=== PATIENT | male | born 1955 | race Hispanic/Latino ===

== ENCOUNTER → 2023-05-06 | Outpatient (CLI) | payer MEDICARE ==
[~2023-05-06] MED LIST: ALBUMIN (HUMAN) 25% 200 ML IV SCH
[2023-05-06 09:46] LABS: BASOPHILS # (AUTO) 0.08 K/uL (0.00-0.20); BASOPHILS % (AUTO) 1.2 % (0.0-5.0); EOSINOPHILS # (AUTO) 0.14 K/uL (0.00-0.70); EOSINOPHILS % (AUTO) 2.1 % (0.0-8.0); HEMATOCRIT 36.1 % (42-54); IMMATURE GRANULOCYTE ABSOLUTE 0.04 K/uL (0-1); LYMPHOCYTES # (AUTO) 1.5 K/uL (1.0-4.8); LYMPHOCYTES % (AUTO) 23.2 % (21.0-51.0); MEAN CORPUSCULAR HEMOGLOBIN 31.7 pg (27.0-33.0); MEAN CORPUSCULAR HGB CONC 33.2 g/dL (32.0-36.0); MEAN CORPUSCULAR VOLUME 95.3 fL (79-99); MONOCYTES # (AUTO) 0.8 K/uL (0.1-1.0); MONOCYTES % (AUTO) 11.6 % (3.0-13.0); NEUTROPHILS % (AUTO) 61.3 % (40.0-77.0); PLATELET COUNT (AUTO) 141 K/uL (130-400); RED BLOOD CELL COUNT(AUTO) 3.79 MIL/uL (4.50-6.20); RED CELL DISTRIBUTION WIDTH 15.9 % (11.0-15.5); WHITE BLOOD COUNT (AUTO) 6.6 K/uL (4.8-10.8)
[2023-05-06 10:08] LABS: ALBUMIN 2.8 g/dL (3.5-5.0); BILIRUBIN,TOTAL 0.5 mg/dL (0.2-1.0); CREATININE 4.6 mg/dL (0.5-1.5); INR 0.99 (0.85-1.15); POTASSIUM 3.6 mmol/L (3.5-5.1); PROTHROMBIN TIME 11.5 SEC (9.6-11.6); TOTAL PROTEIN, SERUM 7.7 g/dL (6.0-8.3)
[2023-05-06 10:10] LABS: PARTIAL THROMBOPLASTIN TIME 29.9 SEC (26.3-35.5)
[2023-05-06 13:32] LABS: ALBUMIN,BODY FLUID 1.6 g/dL; TOTAL PROTEIN,BODY FLUID 4.1 g/dL
== END ==
LOC: RAH 08:30
PROVIDERS: ATTEND Internal Medicine
DX: R18.8 Other ascites (principal); K74.69 Other cirrhosis of liver
CPT/HCPCS: 49083; 84157; 80053; 85025; 85610; 85730; 87071; 87076; 87205; 82042; 36415; 88305; 88112; P9046; C1729

== ENCOUNTER 2023-10-13 07:39 | Day surgery (SDC) | payer MEDICARE ==
[2023-10-09 12:36] LABS: HEMATOCRIT 37.7 % (42-54); MEAN CORPUSCULAR HEMOGLOBIN 33.2 pg (27.0-33.0); MEAN CORPUSCULAR HGB CONC 33.7 g/dL (32.0-36.0); MEAN CORPUSCULAR VOLUME 98.4 fL (79-99); RED BLOOD CELL COUNT(AUTO) 3.83 MIL/uL (4.50-6.20); RED CELL DISTRIBUTION WIDTH 15.8 % (11.0-15.5); WHITE BLOOD COUNT (AUTO) 6.4 K/uL (4.8-10.8)
[2023-10-09 12:46] LABS: INR 0.95 (0.85-1.15); PROTHROMBIN TIME 11.3 SEC (9.6-11.6)
[2023-10-09 12:47] LABS: PARTIAL THROMBOPLASTIN TIME 30.5 SEC (26.3-35.5)
[2023-10-09 13:07] LABS: CREATININE 6.8 mg/dL (0.5-1.3); POTASSIUM 5.3 mmol/L (3.5-5.1)
[2023-10-09 13:09] VITALS: BP 153/91; PULSE 75; RESP 18
[~2023-10-13] VITALS: Ht 172.7 cm; Wt 74.8 kg
[2023-10-13] VITALS (16 sets, daily range): BP systolic 98–114; BP diastolic 53–76; PULSE 69–80; RESP 14–18
[~2023-10-13 07:39] MED LIST changes: -ALBUMIN (HUMAN) 25% 200 ML IV SCH; +FOLI1TAB85 PO; +LACT10SO75 PO; +MIDO10TA PO
[2023-10-13] MEDS ORDERED: 0.9% NACL 500ML IV.SOLN 500 ML IV ONE (09:36)
[2023-10-13 10:23] LABS: POTASSIUM 4.3 mmol/L (3.5-5.1)
[2023-10-13] MEDS ORDERED: PAPAVERINE HCL 30 MG/ML 2ML VIAL ONE (10:49)
[2023-10-13] MEDS ORDERED: CEFAZOLIN SODIUM 1 GM VIAL ONE (10:49)
[2023-10-13] MEDS: CEFAZOLIN SODIUM 2 GM VIAL ONE (11:30)
[2023-10-13] MEDS ORDERED: LIDOCAINE PF 100MG/5ML (2%) SYRINGE 5ML ONE (11:55)
[2023-10-13] MEDS ORDERED: PROPOFOL 10 MG/ML 20ML VIAL IV ONE (11:55)
[2023-10-13] MEDS ORDERED: ONDANSETRON 4MG INJ ONE (11:55)
[2023-10-13] MEDS ORDERED: KETAMINE 50MG/ML SYRINGE 50 MG/ML DISP.SYRIN ONE (11:56)
[2023-10-13] MEDS ORDERED: BUPIVACAINE/PF 0.5% 30ML VIAL ONE (12:15)
[2023-10-13] MEDS ORDERED: LIDOCAINE 1%-EPI 1:100,000 20 ML VIAL ONE (12:16)
[2023-10-13] MEDS: CEFAZOLIN SODIUM 2 GM VIAL IVPB ONE (12:20)
[2023-10-13] MEDS ORDERED: FENTANYL CITRATE PF 50 MCG/1 ML 2ML VIAL ONE (12:22)
[2023-10-13] MEDS ORDERED: HEPARIN 10,000 UNIT/10ML (1,000 UNIT/ML) VIAL ONE (12:56)
[2023-10-13] MEDS ORDERED: PROTAMINE SULFATE 10 MG/ML 5 ML VIAL ONE (13:23)
[2023-10-13] MEDS: LIDOCAINE 1%-EPI 1:100,000 20 ML VIAL IJ ONE (13:35)
== END 2023-10-13 15:42 | disposition home or self-care (01) ==
LOC: DAH 07:39
PROVIDERS: ATTEND Thoracic Surgery (Cardiothoracic Vascular Surgery)
DX: T82.898A Other specified complication of vascular prosthetic devices, implants and grafts, initial encounter (principal); N18.6 End stage renal disease; I45.10 Unspecified right bundle-branch block; Z79.01 Long term (current) use of anticoagulants; Z79.899 Other long term (current) drug therapy; Z90.49 Acquired absence of other specified parts of digestive tract; Z98.890 Other specified postprocedural states; Z87.891 Personal history of nicotine dependence; Z72.89 Other problems related to lifestyle; Y83.2 Surgical operation with anastomosis, bypass or graft as the cause of abnormal reaction of the patient, or of later complication, without mention of misadventure at the time of the procedure; Y92.89 Other specified places as the place of occurrence of the external cause
CPT/HCPCS: 71045; 80048 ×2; 85027; 85610; 85730; 86850 ×2; 86900 ×2; 86901 ×2; 36415 ×2; 93005; 36830; A6260; J2440; C9250; J0665 ×2; A4663; A6207; A4452; J7040; J3010; J0690 ×3; J3490 ×3; J2001; J2720; J1644 ×2; J2704; J2405; A4649 ×3; C1713 ×2; A4930; C1768; A4215; A4223; A4657; A4222; A4221; G0168

== ENCOUNTER → 2024-07-21 | Outpatient (CLI) | payer MEDICARE ==
[~2024-07-21] MED LIST changes: +ALBUMIN HUMAN 25% 200 ML IV ONE; -MIDO10TA PO; +MIDO10TA3 PO
[2024-07-21 11:11] LABS: BASOPHILS % (AUTO) 1.5 % (0.0-5.0); EOSINOPHILS # (AUTO) 0.12 K/uL (0.00-0.70); EOSINOPHILS % (AUTO) 1.8 % (0.0-8.0); HEMATOCRIT 38.3 % (42-54); IMMATURE GRANULOCYTE ABSOLUTE 0.02 K/uL (0-1); LYMPHOCYTES # (AUTO) 1.5 K/uL (1.0-4.8); LYMPHOCYTES % (AUTO) 23.1 % (21.0-51.0); MEAN CORPUSCULAR HEMOGLOBIN 30.5 pg (27.0-33.0); MEAN CORPUSCULAR HGB CONC 30.8 g/dL (32.0-36.0); MONOCYTES # (AUTO) 0.8 K/uL (0.1-1.0); MONOCYTES % (AUTO) 11.9 % (3.0-13.0); NEUTROPHILS # (AUTO) 4.1 K/uL (1.8-7.7); NEUTROPHILS % (AUTO) 61.4 % (40.0-77.0); PLATELET COUNT (AUTO) 176 K/uL (130-400); RED BLOOD CELL COUNT(AUTO) 3.87 MIL/uL (4.50-6.20); WHITE BLOOD COUNT (AUTO) 6.7 K/uL (4.8-10.8)
[2024-07-21 11:23] LABS: ALBUMIN 2.8 g/dL (3.5-5.0); BILIRUBIN,TOTAL 0.6 mg/dL (0.2-1.0); CREATININE 5.2 mg/dL (0.5-1.3); POTASSIUM 4.8 mmol/L (3.5-5.1); TOTAL PROTEIN, SERUM 7.4 g/dL (6.0-8.3)
[2024-07-21 11:30] LABS: PROTHROMBIN TIME 11.2 SEC (9.6-11.6)
[2024-07-21] MEDS: ALBUMIN HUMAN 25% 200 ML IV ONE (11:33)
--- NOTE | 2024-07-21 12:05 | NUR ---
U/S GD PARACENTESIS TOLERATED PROCEDURE. PERFORMED BY DR Mayra CUNNINGHAM. PUNCTURE SITE TO RLQ. 7.3 LITERS OF YELLOW CLOUDY FLUID REMOVED AND SENT TO LAB. ALBUMIN 25% 50 GRAMS GIVEN IV. END OF PROCEDURE AT 1145. DRESSING DRY AND INTACT. NO BLEEDING NOTED. DISCHARGE VIA WHEELCHAIR. DISCHARGE INSTRUCTIONS GIVEN. VERBALIZED UNDERSTANDING. A&O. DENIES PAIN.
[2024-07-21 13:05] LABS: ALBUMIN,BODY FLUID 1.3 g/dL; TOTAL PROTEIN,BODY FLUID 3.2 g/dL
[2024-07-21 13:13] LABS: BODY FLUID RBC 1270 /cu. mm.; BODY FLUID WBC 420 /cu. mm.
[2024-07-21 13:52] LABS: APPEARANCE BODY FLUID SLIGHTLY CLOUDY (CLEAR); COLOR,BODY FLUID YELLOW (LT YELLOW); SPECIMENTYPE,BODY FLUID ASCITES; TOTAL VOLUME,BODY FLUID 7300 mL
[2024-07-21 14:04] LABS: BF LYMPHOCYTE 40 %; BF MACROPHAGE 43; BF MESOTHELIAL 6 %; BF MONOCYTE 5 %; BF TOTAL CELLS COUNTED 100
--- NOTE | 2024-07-21 14:47 | HMCIMG ---
US ABDOMINAL PARACENTESIS IR REASON: ASCITES TECHNIQUE: Paracentesis was performed with ultrasound guidance. The puncture site was selected in the Right lower quadrant and overlying skin prepped and draped in a sterile fashion. 1% Xylocaine infiltration was performed. Catheter was placed in the fluid using trocar technique. 7.3 L were removed. Fluid sample was submitted for laboratory evaluation. The patient showed no evidence of complication during the procedure. IMPRESSION: 1. Ultrasound-guided paracentesis.
== END | disposition home or self-care (01) ==
LOC: RAH 10:28
PROVIDERS: ATTEND Internal Medicine Gastroenterology
DX: R18.8 Other ascites (principal); K21.9 Gastro-esophageal reflux disease without esophagitis; K74.60 Unspecified cirrhosis of liver; N18.6 End stage renal disease; K25.9 Gastric ulcer, unspecified as acute or chronic, without hemorrhage or perforation; K74.69 Other cirrhosis of liver; K57.30 Diverticulosis of large intestine without perforation or abscess without bleeding; K42.0 Umbilical hernia with obstruction, without gangrene; K43.9 Ventral hernia without obstruction or gangrene; K40.90 Unilateral inguinal hernia, without obstruction or gangrene, not specified as recurrent; R06.02 Shortness of breath; J91.8 Pleural effusion in other conditions classified elsewhere; Z98.890 Other specified postprocedural states
CPT/HCPCS: 49083; 84157; 80053; 85025; 89051; 85610; 85730; 87071; 87205; 82042; 36415; P9046; C1729; 96365

== ENCOUNTER 2024-08-14 12:50 | Emergency (ER) | payer MEDICARE ==
[~2024-08-14] VITALS: Ht 172.7 cm; Wt 78.5 kg
[~2024-08-14 12:50] MED LIST changes: -ALBUMIN HUMAN 25% 200 ML IV ONE
--- NOTE | 2024-08-14 13:06 | ERN ---
ED Note History of Present Illness Stated Complaint: RIB AND ABDOMINAL PAIN Chief Complaint: Abdominal Pain Time Seen by MD: 12:52 Dictation: PATIENT IS A 68-YEAR-OLD MALE COMING IN TODAY WITH COMPLAINTS OF AN ACUTE ONSET OF EPIGASTRIC PAIN WITHOUT NAUSEA VOMITING DIARRHEA THIS MORNING. HE STATES HE HAS A HISTORY OF HERNIAS AND HAD A PRIOR REPAIR IN MAY AT THE EMERGENCY ROOM HERE AT [place]. STATES HE HAS TWO MORE HERNIAS TO HIS ABDOMEN THAT HAS BEEN WORKED UP BY [facility] HOWEVER THEY BEEN WAITING TO SEE WHEN THEY COULD PERFORM SURGERY. NO CHEST PAIN NO BACK PAIN NO SOB. Allergies: Coded Allergies: No Known Drug Allergies (Verified Allergy, Unknown, 05/05/23) Home Meds Reported Medications Vit B Cmplx 3/FA/Vit C/Biotin (Jyoti-Evelyn Rx Tablet) 1 Mg-60 Mg-300 Mcg Tablet, 1 EACH PO DAILY, TAB 10/09/23 Lactulose (Enulose) 10 Gram/15 Ml Solution, 10 GM PO DAILY, ML 10/09/23 Midodrine HCl (Midodrine HCl) 10 Mg Tablet, 10 MG PO TID, TAB 10/09/23 Past Medical History RN Note Reviewed/Agreed w/PFSH: Yes Review of System Dictation CONSTITUTIONAL: NEGATIVE EXCEPT FOR HPI HEAD/FACE: NEGATIVE EXCEPT FOR HPI EENT: NEGATIVE EXCEPT FOR HPI RESPIRATORY: NEGATIVE EXCEPT FOR HPI GASTROINTESTINAL/ABDOMINAL: NEGATIVE EXCEPT FOR HPI EPIGASTRIC PAIN WITH NAUSEA GENITOURINARY: NEGATIVE EXCEPT FOR HPI MUSCULOSKELETAL: NEGATIVE EXCEPT FOR HPI INTEGUMENTARY: NEGATIVE EXCEPT FOR HPI NEUROLOGICAL/PSYCH: NEGATIVE EXCEPT FOR HPI HEMATOLOGIC/LYMPHATIC: NEGATIVE EXCEPT FOR HPI ALL SYSTEMS NEGATIVE, EXCEPT NOTED ABOVE. 13 POINT REVIEW OF SYSTEMS ASSESSED AND ALL NEGATIVE EXCEPT FOR ABOVE. Initial Vital Sign VS Vital Signs Date Time Temp Pulse Resp B/P (MAP) Pulse Ox O2 Delivery O2 Flow Rate FiO2 08/14/24 13:03 97.9 92 18 129/79 96 Room Air 08/14/24 13:15 0 21 Physical Exam Dictation VITAL SIGNS REVIEWED GENERAL APPEARANCE: ALERT, ORIENTED X 3, MONITOR ACUTE DISTRESS, WELL DEVELOPED, NOURISHED. HEAD AND FACE: NON-TRAUMATIC. EYES: PERRL, PINK CONJUNCTIVAS, EYELID NO TRAUMA, ANTERIOR CHAMBER WITH ARCUS SENILIS. EARS: PINNAS INTACT AND NO SIGNS OF TRAUMA OR ERYTHEMA EAR CANALS CLEAR AND NO DISCHARGE TM NO ERYTHEMA NOSE: NO DISCHARGE, NO BLEEDING. OROPHARYNX: MOUTH NORMAL, TONGUE PINK, PHARYNX CLEAR,NO ERYTHEMA, TONSILS NO EXUDATES, NO ABSCESSES NOTED, MUCOUS MEMB PREETI MOIST NECK: SUPPLE, NON-TENDER, NO THYROMEGALY, NO MASSES, NO JVD, NO BRUITS BREAST:DEFERRED CHEST:NO TENDERNESS, NO CREPITUS, NO PARADOXICAL MOVEMENT, NO RETRACTIONS LUNGS:CLEAR, WELL-VENTILATED, SYMMETRIC, NO RALES, NO WHEEZING, NO RHONCHI, NO S TRIDOR, GOOD BREATH SOUNDS BILATERALLY HEART: REGULAR RATE, REGULAR RHYTHM, NO MURMUR, NO GALLOPS VASCULAR: NO PERIPHERAL EDEMA, ABDOMEN: SOFT, POSITIVE BOWEL SOUNDS, NONDISTENDED, NO GUARDING, MODERATE EPIGASTRIC PAIN WITH PALPATION, NO REBOUND, NO MASSES NO HEPATOMEGALY, NO SPLENOMEGALY, NO GUO'S SIGN, NO HERNIAS. RECTAL: DEFERRED GENITAL: DEFERRED NEUROLOGICAL: NORMAL SPEECH, MOTOR FUNCTION INTACT, SENSORY FUNCTION INTACT MUSCULOSKELETAL: NECK NONTENDER, FULL RANGE OF MOTION, BACK NONTENDER, FULL RANGE OF MOTION, EXTREMITIES: NONTENDER, FULL RANGE OF MOTION SKIN: COLOR PINK, DRY, NO TURGOR, NO RASH, NO LACERATIONS, NO ABRASIONS, NO CONTUSIONS. LYMPHATIC: DEFERRED Results (Laboratory/Radiology) Laboratory/Radiology Laboratory Tests Test 08/14/24 14:08 White Blood Count 6.9 K/uL (4.8-10.8) Red Blood Count 4.23 MIL/uL (4.50-6.20) L Hemoglobin 12.9 g/dL (14.0-18.0) L Hematocrit 40.2 % (42-54) L Mean Corpuscular Volume 95.0 fL (79-99) Mean Corpuscular Hemoglobin 30.5 pg (27.0-33.0) Mean Corpuscular Hemoglobin Concent 32.1 g/dL (32.0-36.0) Red Cell Distribution Width 17.2 % (11.0-15.5) H Platelet Count 143 K/uL (130-400) Mean Platelet Volume 9.0 fL (7.5-10.5) Immature Granulocyte % (Auto) 0.4 % (0-1) Neutrophils (%) (Auto) 72.1 % (40.0-77.0) Lymphocytes (%) (Auto) 14.8 % (21.0-51.0) L Monocytes (%) (Auto) 10.6 % (3.0-13.0) Eosinophils (%) (Auto) 0.9 % (0.0-8.0) Basophils (%) (Auto) 1.2 % (0.0-5.0) Neutrophils # (Auto) 5.0 K/uL (1.8-7.7) Lymphocytes # (Auto) 1.0 K/uL (1.0-4.8) Monocytes # (Auto) 0.7 K/uL (0.1-1.0) Eosinophils # (Auto) 0.06 K/uL (0.00-0.70) Basophils # (Auto) 0.08 K/uL (0.00-0.20) Absolute Immature Granulocyte (auto 0.03 K/uL (0-1) Nucleated Red Blood Cells 0.0 % (0.0-0.19) Sodium Level 132 mmol/L (136-145) L Potassium Level 4.7 mmol/L (3.5-5.1) Chloride Level 94 mmol/L (101-111) L Carbon Dioxide Level 31 mmol/L (21-32) Blood Urea Nitrogen 28 mg/dL (7-18) H Creatinine 6.6 mg/dL (0.5-1.3) H Glomerular Filtration Rate Calc 9 mL/min (>90) Random Glucose 92 mg/dL (70-105) Total Calcium 8.6 mg/dL (8.5-10.1) Troponin I High Sensitivity 8 ng/L (4-75) Lipase 30 U/L (16-77) Findings: No evidence of nephro or ureterolithiasis is found. No hydronephrosis or ureteral dilatation is seen. The kidneys are atrophic. There is a large left pleural effusion, incompletely visualized. The lung bases are clear. The stomach is unremarkable. It shows no wall thickening. No gross ulceration is seen. It is not overly distended. There are no surrounding inflammatory changes. No wall lesions are identified to suggest cancer. The spleen is enlarged. The liver is irregular in contour consistent with given history of cirrhosis. There are splenic hilar varices and varices of the gastroesophageal junction. There is significant ascites. These findings are consistent with portal venous hypertension. The pancreas shows normal anatomy. It is not fatty replaced. It shows no lesions. The pancreatic duct is not dilated. The gallbladder is unremarkable. It shows no cholelithiasis. The gallbladder wall is normal in thickness. There is no pericholecystic fluid. The is no acute or chronic inflammation noted. The adrenal glands are unremarkable. There is no enlargement. No lesions are noted. The appendix is unremarkable. It shows no evidence of inflammation. No appendicolith is seen. The small bowel is unremarkable. There is no evidence of dilatation to suggest obstruction. No evidence of adynamic ileus is seen. There is no small bowel wall thickening to suggest enteritis. The colon is unremarkable. The urinary bladder is unremarkable. There is no wall thickening to suggest tumor or inflammation. There are no intraluminal calculi. There are no diverticula. There is no evidence of chronic bladder outlet obstruction. There is no evidence of urinary bladder distention to suggest urinary retention. There is a large hiatal hernia on the right side containing only peritoneal fat. The bony and vascular structures are unremarkable for the patient's age. IMPRESSION: Findings consistent with cirrhosis and portal venous hypertension. Other findings as described. Labs Reviewed?: Yes EKG Comment: EKG SINUS RHYTHM/HEART RATE 92/AXIS NORMAL/RIGHT BUNDLE BRANCH BLOCK ED Course ED Course Orders Procedure Category Date Status Time Cbc With Differential LAB 08/14/24 Complete 13:04 Troponin I High LAB 08/14/24 Complete Sensitivity 13:04 Urinalysis Profile LAB 08/14/24 Logged 13:04 12 Lead Ekg Tracing- EKG 08/14/24 Complete Technical 13:04 0.9%Nacl 1000ml (Ns PHA 08/14/24 Complete 1000ml) 13:30 Morphine 4mg Syg PHA 08/14/24 Complete (Morphine 4mg Syg) 13:30 Ondansetron 4mg Inj PHA 08/14/24 Complete (Zofran 4mg Inj) 13:30 Lipase LAB 08/14/24 Complete 13:04 Basic Metabolic Panel LAB 08/14/24 Complete 13:04 Ct Abdomen/Pelvis W/O CT 08/14/24 Resulted Contrast 13:07 Iohexol (Omnipaque) PHA 08/14/24 Complete 13:10 Acetaminophen With PHA 08/14/24 In Process Codeine (Tylenol-Code 17:00 Current Medications Medications (Trade) Dose Ordered Sig/Cali Route PRN Reason Start Time Stop Time Status Last Admin Dose Admin Acetaminophen/ Codeine Phosphate (TYLenol-coDEINE TAB) 2 tab ONCE ONCE PO 08/14/24 17:00 08/14/24 17:01 Iohexol (Omnipaque) 75 ml STK-MED ONCE IV 08/14/24 13:10 08/14/24 13:11 DC Morphine Sulfate (morPHINE 4MG SYG) 4 mg ONCE ONCE IVP 08/14/24 13:30 08/14/24 13:31 DC 08/14/24 14:48 Ondansetron HCl (zoFRAN 4MG INJ) 4 mg ONCE ONCE IVP 08/14/24 13:30 08/14/24 13:31 DC 08/14/24 14:48 Sodium Chloride 1,000 ml @ 0 mls/hr ONCE ONCE IV 08/14/24 13:30 08/14/24 13:31 DC 08/14/24 14:48 Vital Signs Date Time Temp Pulse Resp B/P (MAP) Pulse Ox O2 Delivery O2 Flow Rate FiO2 08/14/24 16:34 97.9 94 18 109/63 96 Room Air* 0 21 08/14/24 13:15 97.9 92 18 129/79 96 Room Air* 0 21 08/14/24 13:03 97.9 92 18 129/79 96 Room Air 1635/PATIENT STATES HE DOES NOT WISH TO BE ADMITTED TO THE HOSPITAL, WE WILL FOLLOW UP WITH IN THE NEXT 1-2 DAYS. HE IS AWARE HE HAS A VENTRAL HERNIA HOWEVER THIS NO INCARCERATION OR STRANGULATION ADDITIONALLY HE STATES HE HAS A END-STAGE RENAL DISEASE WITH HEMODIALYSIS Thursday, NEXT DIALYSIS IS TOMORROW. PATIENT OF . Medical Decision Making MDM MDM: DIFFERENTIAL DIAGNOSIS: HALER HERNIA/VENTRAL HERNIA/INCARCERATED HERNIA/ACS/AMI/ELECTROLYTE IMBALANCE RATIONALE: TESTS CONSIDERED AND ORDERED SECONDARY TO SHARED DECISION MAKING INCLUDE: RADIOLOGY/LABS/EKG PREVIOUS OUTSIDE RECORDS REVIEWED: OLD ER VISITS. RISK OF COMPLICATION AND/OR MORBIDITY OR MORTALITY OF PATIENT MANAGEMENT: NONE MEDICATIONS-PER MEDICATION RECONCILIATION NEED FOR HOSPITALIZATION: PATIENT DOES NOT MEET CRITERIA FOR HOSPITALIZATION. PATIENT REFUSED ADMISSION STATES HE WILL FOLLOW UP WITH OUTPATIENT SURGERY IN THE NEXT 1-2 DAYS NEED FOR EMERGENCY MAJOR/MINOR SURGERY: NO THERE ARE NO SOCIAL CONCERNS WITH THIS PATIENT. PRESCRIPTION DRUG MANAGEMENT TYLENOL WITH CODEINE PRESCRIPTIONS WILL INCLUDE SYMPTOMATIC CARE PATIENT'S PRIOR EXTERNAL MEDICAL RECORDS FROM OTHER ER VISITS WERE REVIEWED BY ME INDICATED. PRIOR TESTING AND RESULTS FROM PREVIOUS VISITS WERE REVIEWED. PRIOR TESTS WERE TAKEN INTO ACCOUNT WITH MEDICAL DECISION MAKING AND RESOURCE UTILIZATION, INDEPENDENT HISTORIAN/HISTORIANS WERE USED TO OBTAIN COMPLETE MEDICAL HISTORY. I INDEPENDENTLY INTERPRETED THE TEST THAT WERE PERFORMED, RESULTS WERE REVIEWED BY ME AND CONSIDERED FINDINGS ON RADIOLOGY IF ORDERED. MEDICAL MANAGEMENT AND EXAMINATION INTERPRETATION DISCUSSIONS WERE HAD BY ME WITH OTHER QUALIFIED HEALTHCARE PROFESSIONALS INDICATED FOR THE PATIENT'S CARE. DX & DISP Disposition: Discharge Departure Impression: Primary Impression: Ventral hernia Additional Impressions: ESRD (end stage renal disease) on dialysis, Anemia of chronic kidney failure Condition: Stable Scripts Acetaminophen with Codeine (Acetaminophen-Cod #3 Tablet) 300 Mg-30 Mg Tablet 1 TAB PO Q4H PRN for MODERATE TO SEVERE PAIN, #12 TAB 0 Refills Prov: MARCY PARR NP 08/14/24 Additional Instructions: Follow-up with primary care provider in 1 to 2 days. Take medications as directed here in the emergency room. Okay to continue home medications unless otherwise discussed during your visit in the emergency room today. Return to your nearest emergency room if symptoms worsen or if there is no improvement. Call 911 if you need immediate assistance. Take Tylenol or Motrin [id number] as needed and if no contraindications are present. Increase oral hydration. A wound culture or urine culture was ordered here in the emergency room department please follow-up with primary care provider and advise them to get repeat ports from our facility. If you had any Thanh wrap/splints that were applied here, please do not remove them until you see your primary care or specialty. Continue with the abdominal binder, no lifting greater than 10 lb until cleared by surgeon. Call surgeon for appointment in the next 1-2 days. Referrals: ANTONIO POLANCO (PCP) PAM MATSON MD Time of Disposition: 16:36 I have reviewed the case, and I agree with, Diagnosis and Plan MARCY PARR NP Aug 14, 2024 13:06
--- NOTE | 2024-08-14 13:09 | NUR ---
PATIENT IN [facility]. PENDING GFR RESULTS, IV SITE, & CONSENT FOR CT EXAM. Addendum: 08/14/24 at 1320 by LEANDER PACKER RAD CT EXAM CHANGED TO WITHOUT CONTRAST
[2024-08-14] MEDS ORDERED: IOHEXOL-350 75 ML VIAL IV ONE (13:10)
--- NOTE | 2024-08-14 13:56 | HMCIMG ---
CT ABDOMEN PELVIS WITHOUT CONTRAST Clinical Information: EPIGASTRIC PAIN WITH NAUSEA VOMITING. HISTORY OF HERNIA PROTOCOL: Routine noncontrast helical scanning of the abdomen and pelvis was performed at 5mm collimation. Findings: No evidence of nephro or ureterolithiasis is found. No hydronephrosis or ureteral dilatation is seen. The kidneys are atrophic. There is a large left pleural effusion, incompletely visualized. The lung bases are clear. The stomach is unremarkable. It shows no wall thickening. No gross ulceration is seen. It is not overly distended. There are no surrounding inflammatory changes. No wall lesions are identified to suggest cancer. The spleen is enlarged. The liver is irregular in contour consistent with given history of cirrhosis. There are splenic hilar varices and varices of the gastroesophageal junction. There is significant ascites. These findings are consistent with portal venous hypertension. The pancreas shows normal anatomy. It is not fatty replaced. It shows no lesions. The pancreatic duct is not dilated. The gallbladder is unremarkable. It shows no cholelithiasis. The gallbladder wall is normal in thickness. There is no pericholecystic fluid. The is no acute or chronic inflammation noted. The adrenal glands are unremarkable. There is no enlargement. No lesions are noted. The appendix is unremarkable. It shows no evidence of inflammation. No appendicolith is seen. The small bowel is unremarkable. There is no evidence of dilatation to suggest obstruction. No evidence of adynamic ileus is seen. There is no small bowel wall thickening to suggest enteritis. The colon is unremarkable. The urinary bladder is unremarkable. There is no wall thickening to suggest tumor or inflammation. There are no intraluminal calculi. There are no diverticula. There is no evidence of chronic bladder outlet obstruction. There is no evidence of urinary bladder distention to suggest urinary retention. There is a large hiatal hernia on the right side containing only peritoneal fat. The bony and vascular structures are unremarkable for the patient's age. IMPRESSION: Findings consistent with cirrhosis and portal venous hypertension. Other findings as described. This study was performed using dose reduction techniques to include automated exposure control and/or adjustment of the mA and/or kV according to patient size to include automated exposure control and/or adjustment of the mA and/or kV according to patient size.
[2024-08-14 14:13] LABS: BASOPHILS # (AUTO) 0.08 K/uL (0.00-0.20); BASOPHILS % (AUTO) 1.2 % (0.0-5.0); EOSINOPHILS # (AUTO) 0.06 K/uL (0.00-0.70); EOSINOPHILS % (AUTO) 0.9 % (0.0-8.0); HEMATOCRIT 40.2 % (42-54); IMMATURE GRANULOCYTE ABSOLUTE 0.03 K/uL (0-1); LYMPHOCYTES % (AUTO) 14.8 % (21.0-51.0); MEAN CORPUSCULAR HEMOGLOBIN 30.5 pg (27.0-33.0); MEAN CORPUSCULAR HGB CONC 32.1 g/dL (32.0-36.0); MONOCYTES # (AUTO) 0.7 K/uL (0.1-1.0); MONOCYTES % (AUTO) 10.6 % (3.0-13.0); NEUTROPHILS % (AUTO) 72.1 % (40.0-77.0); PLATELET COUNT (AUTO) 143 K/uL (130-400); RED BLOOD CELL COUNT(AUTO) 4.23 MIL/uL (4.50-6.20); RED CELL DISTRIBUTION WIDTH 17.2 % (11.0-15.5); WHITE BLOOD COUNT (AUTO) 6.9 K/uL (4.8-10.8)
[2024-08-14 14:24] LABS: CREATININE 6.6 mg/dL (0.5-1.3); POTASSIUM 4.7 mmol/L (3.5-5.1)
--- NOTE | 2024-08-14 14:39 | EKG ---
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
[2024-08-14] MEDS: ondanSETRON 4MG INJ IVP ONE (14:48)
[2024-08-14] MEDS: morPHINE 4 MG SYG IVP ONE (14:48)
[2024-08-14] MEDS: 0.9%NACL 1000ML 1,000 ML IV ONE (14:48)
[2024-08-14] MEDS ORDERED: ACET-2079 PO (16:38)
[2024-08-14] MEDS: acetaMINOPHEN WITH coDEINE 1 TAB TAB PO ONE (18:10)
[2024-08-14 18:45] VITALS: BP 116/75; PULSE 81; RESP 18; TEMP 98; O2SAT 96
== END 2024-08-14 19:03 | disposition home or self-care (01) ==
LOC: EDH 12:50
DX: K43.9 Ventral hernia without obstruction or gangrene (principal); N18.6 End stage renal disease; D63.1 Anemia in chronic kidney disease; Z99.2 Dependence on renal dialysis; Z79.899 Other long term (current) drug therapy
CPT/HCPCS: 99285; 74176; 96374; 96361; 96375; 84484; 80048; 83690; 85025; 36415; 93005; J7030; J2405; J2270; Q9967

== ENCOUNTER → 2024-09-01 | Outpatient (CLI) | payer MEDICARE ==
[~2024-09-01] MED LIST changes: +ACET-2079 PO; +DIATR MEGLU/DIATRIZOATE SODIUM 30 ML BOTTLE ONE
--- NOTE | 2024-09-02 10:13 | HMCIMG ---
UPPER GI W/SMALL BOWEL REASON: Umbilical hernia with obstruction, without gangrene/Umbilical hernia w/O. COMPARISON: None TECHNIQUE: Upper GI with small bowel follow-through study was performed. FINDINGS: A normal esophageal stripping wave is seen. No evidence of hiatal hernia is seen. No evidence of gastroesophageal reflux is seen. The stomach is distended. Small bowel is dilated. On the 8 hour delayed images, the contrast reached the jejunum in the mid abdomen. Findings are suggested of small bowel obstruction in the proper clinical setting. IMPRESSION: Findings suggestive small bowel obstruction in a proper clinical setting.
== END | disposition home or self-care (01) ==
LOC: RAH 09:28
PROVIDERS: ATTEND Surgery
DX: K31.89 Other diseases of stomach and duodenum (principal); K25.9 Gastric ulcer, unspecified as acute or chronic, without hemorrhage or perforation; K43.9 Ventral hernia without obstruction or gangrene; K42.0 Umbilical hernia with obstruction, without gangrene; K40.90 Unilateral inguinal hernia, without obstruction or gangrene, not specified as recurrent
CPT/HCPCS: 74240; Q9963